=== PATIENT | male | born 1990 | race African-American/Black ===

== ENCOUNTER 2024-10-29 12:49 | Inpatient (IN) | payer OTHER ==
[2024-10-29] VITALS (94 sets, daily range): BP systolic 71–123; BP diastolic 46–93
[~2024-10-29] VITALS: Ht 182.9 cm; Wt 100.9 kg
[2024-10-29] MEDS ORDERED: SODIUM CHLORIDE 0.9% 1,000 ML IV ONE ×2 (13:15→15:55)
[2024-10-29] MEDS ORDERED: dilTIAZem HCL 50 MG/10 ML SDV IV ONE ×3 (13:15→17:55)
[2024-10-29 13:21] LABS: BASO% 0.6 % (0-3); EOS% 3.1 % (0-8); HEMATOCRIT 46.6 % (39.0-50.0); HEMOGLOBIN 15.5 g/dl (14.0-18.0); LYMPH% 41.5 % (15-41); MEAN CELL VOLUME 87.9 fL CALC (80.0-100.0); MEAN CORPUSCULAR HGB 29.2 pG CALC (26.0-32.0); MEAN CORPUSCULAR HGB CONC 33.3 g/dL CAL (32.0-36.0); MONO% 8.7 % (2-13); NEUT# 2.49 thou/uL (1.82-7.42); NEUT% 46.1 % (42-76); RED BLOOD COUNT 5.3 mill/uL (4.70-6.10); RED CELL DISTRI WIDTH 12.6 % (11.5-15.5)
[2024-10-29 14:46] LABS: ALBUMIN 3.5 g/dL (3.2-5.0); ALKALINE PHOSPHATASE 99 u/l (38-126); ANION GAP 11 (6-22 (CALC)); BUN 18 mg/dL (9-20); BUN/CREATININE RATIO 18 (12-20 (CALC)); CARBON DIOXIDE 23 mmol/l (22-30); CHLORIDE 112 mmol/l (95-108); ESTIMATED GFR 101 ML/MIN (>=90 (CALC)); MAGNESIUM 2.1 mg/dL (1.6-2.3); POTASSIUM 4.8 mmol/l (3.5-5.1); SGOT/AST 23 u/l (17-59); SODIUM 140 mmol/l (137-146); TOTAL PROTEIN 6.6 g/dL (6.3-8.2)
[2024-10-29 14:57] LABS: URINE BILIRUBIN - DIPSTICK Negative (NEGATIVE); URINE BLOOD DIPSTICK Negative (NEGATIVE); URINE GLUCOSE - DIPSTICK Negative (NEGATIVE); URINE KETONE Negative (NEGATIVE); URINE LEUK ESTERASE Negative (NEGATIVE); URINE NITRITE - DIPSTICK Negative (Negative); URINE PH 5.5 (4.5-8.0); URINE PROTEIN - DIPSTICK Negative (NEG-TRACE); URINE UROBILINOGEN - DIPSTICK 0.2 E.U./dL (0.2)
[2024-10-29 15:04] LABS: URINE COLOR Yellow
[2024-10-29 15:09] LABS: D-DIMER < 0.19 mg/L (0.19-0.60)
[2024-10-29] MEDS ORDERED: dilTIAZem HCL 30 MG/TAB PO ONE ×2 (17:05→18:35)
[2024-10-29] MEDS ORDERED: APIXABAN BASE 5 MG TAB PO ONE (17:05)
[2024-10-29] MEDS ORDERED: MAGNESIUM HYDROXIDE 30 ML UDC PO PRN (17:20)
[2024-10-29] MEDS ORDERED: Zaleplon 5 MG/CAP PO PRN (17:20)
[2024-10-29] MEDS ORDERED: ACETAMINOPHEN 325 MG/TAB PO PRN (17:20)
[2024-10-29] MEDS ORDERED: SODIUM CHLORIDE 0.9% 1,000 ML IV PRN (17:20)
[2024-10-29] MEDS ORDERED: APIXABAN BASE 5 MG TAB PO SCH (21:00)
[2024-10-30 03:42] VITALS: BP 124/81
[2024-10-30 05:34] VITALS: BP 108/69
[2024-10-30 05:58] VITALS: BP 124/81
[2024-10-30 06:45] LABS: CHOLESTEROL HDL RATIO 3.6 (<4.4 (CALC)); MAGNESIUM 1.9 mg/dL (1.6-2.3)
[2024-10-30] MEDS ORDERED: METOPROLOL SUCCINATE 50 MG/TAB PO SCH (08:00)
[2024-10-30 09:32] VITALS: BP 115/61
[2024-10-30] MEDS ORDERED: METOPROLOL TARTRATE 50 MG/TAB PO SCH (10:30)
[2024-10-30 13:00] VITALS: BP 109/63
[2024-10-30 18:20] VITALS: BP 108/68
[2024-10-31] VITALS (7 sets, daily range): BP systolic 88–100; BP diastolic 48–63
[2024-10-31 05:39] LABS: BASO% 0.2 % (0-3); EOS% 3.8 % (0-8); HEMATOCRIT 43.5 % (39.0-50.0); HEMOGLOBIN 14.4 g/dl (14.0-18.0); LYMPH% 52.2 % (15-41); MEAN CELL VOLUME 90.2 fL CALC (80.0-100.0); MEAN CORPUSCULAR HGB 29.9 pG CALC (26.0-32.0); MEAN CORPUSCULAR HGB CONC 33.1 g/dL CAL (32.0-36.0); MONO% 10.2 % (2-13); NEUT# 1.84 thou/uL (1.82-7.42); NEUT% 33.6 % (42-76); RED BLOOD COUNT 4.82 mill/uL (4.70-6.10); RED CELL DISTRI WIDTH 12.7 % (11.5-15.5)
[2024-10-31 05:53] LABS: ALBUMIN 3.1 g/dL (3.2-5.0); BILIRUBIN, TOTAL 0.9 mg/dL (0.2-1.3); MAGNESIUM 2.1 mg/dL (1.6-2.3); POTASSIUM 4.4 mmol/l (3.5-5.1); TOTAL PROTEIN 6.1 g/dL (6.3-8.2)
[2024-10-31] MEDS ORDERED: ELIQUIS5 MG PO (08:16)
[2024-10-31] MEDS ORDERED: LOPRESSOR 550 MG/TAB PO (08:17)
[2024-10-31] MEDS ORDERED: METOPROLOL TARTRATE 50 MG/TAB PO SCH (09:00)
== END 2024-10-31 11:44 | disposition designated cancer center or children's hospital (05) | DRG 310 ==
LOC: ED 12:49 → ED-I 17:01 → ED 17:06 → MS2 17:07
PROVIDERS: Family Medicine; Nurse Practitioner; Nurse Practitioner Family; ADMIT Internal Medicine; ATTEND Internal Medicine
DX: I48.91 Unspecified atrial fibrillation (principal)